=== PATIENT | male | born 1975 | race Caucasian/White ===

== ENCOUNTER 2016-12-04 08:38 | Emergency (ER) | payer MEDICAID ==
[~2016-12-04] VITALS: Ht 182.9 cm; Wt 181.8 kg
[~2016-12-04 08:38] MED LIST: AMIT75 PO; DIAZ10 PO; HYDR-3965 PO; LISI-662 PO
[2016-12-04] MEDS ORDERED: GABA-531 PO (09:08)
[2016-12-04] MEDS ORDERED: FLUO-191 PO (09:08)
[2016-12-04] MEDS ORDERED: LAMO100 PO (09:08)
[2016-12-04] MEDS ORDERED: LAMO25 PO (09:08)
[2016-12-04] MEDS ORDERED: HYDR25TA PO (09:08)
[2016-12-04] MEDS ORDERED: HYDROCODONE/ACETAMINOPHEN 10-325 MG TABLET PO ONE (10:00)
[2016-12-04] MEDS ORDERED: HYDROCHLOROTHIAZIDE 25 MG TABLET PO ONE (10:15)
[2016-12-04 11:25] VITALS: BP 149/81
== END 2016-12-04 11:59 | disposition home or self-care (01) ==
LOC: EMS 08:39
DX: S40.011A Contusion of right shoulder, initial encounter (principal); I10 Essential (primary) hypertension; G89.29 Other chronic pain; F12.90 Cannabis use, unspecified, uncomplicated; E66.01 Morbid (severe) obesity due to excess calories; Z68.43 Body mass index [BMI] 50.0-59.9, adult; W19.XXXA Unspecified fall, initial encounter; Y93.89 Activity, other specified; Y92.89 Other specified places as the place of occurrence of the external cause; Y99.8 Other external cause status
CPT/HCPCS: 99284

== ENCOUNTER 2018-11-14 17:39 | Emergency (ER) | payer MEDICARE, MEDICAID ==
[~2018-11-14 17:39] MED LIST changes: -AMIT75 PO; +FLUO-191 PO; +GABA-531 PO; +HYDR25TA PO; +LAMO100 PO; +LAMO25 PO
[2018-11-14] MEDS ORDERED: DIAZEPAM 5 MG TABLET PO ONE (21:00)
[2018-11-14] MEDS ORDERED: KETOROLAC TROMETHAMINE 60 MG/2 ML VIAL IM ONE (21:00)
[2018-11-14] MEDS ORDERED: PredniSONE 20 MG TABLET PO ONE (21:00)
[2018-11-14 21:35] VITALS: BP 154/89
== END 2018-11-14 21:53 | disposition home or self-care (01) ==
LOC: EMS 17:45
DX: M54.41 Lumbago with sciatica, right side (principal); E66.01 Morbid (severe) obesity due to excess calories; I10 Essential (primary) hypertension; M19.90 Unspecified osteoarthritis, unspecified site; F41.9 Anxiety disorder, unspecified; F32.9 Major depressive disorder, single episode, unspecified; F12.90 Cannabis use, unspecified, uncomplicated; Z79.899 Other long term (current) drug therapy
CPT/HCPCS: 96372; 99283; J1885; J7512